=== PATIENT | male | born 1965 | race African-American/Black ===

== ENCOUNTER 2019-10-01 16:53 | Outpatient (RCR) | payer OTHER, SELFPAY ==
--- NOTE | 2019-10-01 17:44 | PTOPEVAL ---
Thank you for referring this patient to [facility]. Please review, sign, date and return this plan of care ANDRAE. I agree with and certify that the following plan of care is medically necessary. Referring Physician Date Admitting Provider: Attending Provider: Christian Santoyo MD Referring Provider: *PT Outpatient Evaluation Start: 10/01/19 17:03 Freq: Status: Active Protocol: Document 10/01/19 17:04 MEDHAT (Rec: 10/01/19 17:34 MEDHAT [id number]) Therapy Assessment Status Assessment Status Assessment Status Evaluation Evaluation Information Problem Diagnosis neck pain Onset 09/26/19 Subjective Information Pt. reports that he began Query Text:As Reported By Patient/ developing gradual neck pain Family about 1 year ago. He reports that he attempted client care representative without any relief. He reports that pain in the neck is not constant. He reports that pain comes with any neck movement and describes pain on the right side of the neck. He reports that pain is increased espeically with quick movement. He reports having numbness and tingling and burning sensation into the left hand. 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 He states that his goal is to be able to move his neck more with less pain. Diagnostic Tests X-Rays For This Problem Yes: DISH was revealed according to the pt. Prior Level of Function Activity Level (Last 3 Months) Hand Dominance Right Activity of Daily Living Ability Independent Indoor/Home Mobility Independent Community Mobility Independent Stairs Ability Independent Functional Cognition (Planning, Shopping Independent , Taking Medications) Cooking Yes Cleaning Yes Laundry Yes Shopping Yes Driving Yes Comments Additional Prior Level of Function pt. continues to work full Comments time despite continued neck pain Pain Assessment Pain Scale Pain Scale Used Numeric (1 - 10) Self Report Pain Assessme
== END 2019-10-25 18:46 | disposition home or self-care (01) ==
LOC: CHSPT 16:53
PROVIDERS: PCP Family Medicine; Visit Provider Family Medicine
DX: M54.2 Cervicalgia (principal)
CPT/HCPCS: 97014; 97110; 97140; 97161; G0283

== ENCOUNTER 2020-05-29 16:32 | Outpatient (CLI) | payer OTHER, SELFPAY ==
[2020-05-29 16:48] LABS: Basophils Absolute Auto 0.06 K/mm3 (0.00-0.10); Basophils Percent Auto 0.7 % (0.0-1.0); Eosinophils Absolute Auto 0.62 K/mm3 (0.02-0.50); Eosinophils Percent Auto 7.6 % (1.0-6.0); Hematocrit 53.3 % (40.0-54.0); Hemoglobin 17.1 g/dL (14.0-18.0); Immature Granulocyte Absolute 0.03 K/mm3 (0.00-0.00); Immature Granulocyte Percent A 0.4 % (0.0-0.0); Lymphocytes Absolute Auto 2.04 K/mm3 (1.10-4.50); Mean Corpuscular HGB Conc 32.1 g/dL (32.0-36.0); Mean Corpuscular Hemoglobin 28.5 pg (27.0-31.0); Mean Corpuscular Volume 88.7 fL (78.0-102.0); Mean Platelet Volume 9.9 fl (8.7-11.0); Monocytes Absolute Auto 0.81 K/mm3 (0.10-0.90); Monocytes Percent Auto 9.9 % (2.0-11.0); Neutrophils Absolute Auto 4.6 K/mm3 (1.7-7.2); Neutrophils Percent Auto 56.4 % (50.0-70.0); Platelet Count Result 224 K/mm3 (150-420); Red Blood Count 6.01 M/mm3 (4.70-6.10); Red Cell Distribution Width 13.3 % (11.6-14.4); White Blood Count 8.2 K/mm3 (4.8-10.8)
[2020-05-29 17:12] LABS: Hemoglobin A1C 5.6 % (<5.7)
[2020-05-29 17:21] LABS: Alanine Aminotransferase 47 U/L (16-63); Albumin Level 4.1 g/dL (3.4-5.0); Alkaline Phosphatase 90 U/L (46-116); Aspartate Amino Transferase 33 U/L (15-37); Bilirubin,Total 0.5 mg/dL (0.00-1.00); Blood Urea Nitrogen 17 mg/dL (7-18); Calcium 8.7 mg/dL (8.5-10.1); Carbon Dioxide 29 mmol/L (21-32); Estimated Glomerular Filt Rate > 60; Glucose 100 mg/dL (70-99); HDL Direct 41 mg/dL (40-60); Thyroid Stimulating Hormone 1.95 uIU/mL (0.36-3.74); Triglycerides 165 mg/dL (0-150)
[2020-05-29 17:43] LABS: Anion Gap 7 mmol/L (8-16); Chloride 105 mmol/L (98-108); LDL Cholesterol Calculated 128 mg/dL (<130); Osmolality Calculated 293 mOsm/kg (285-295); Sodium 141 mmol/L (136-145)
[2020-05-29 17:47] LABS: Cholesterol 202 mg/dL (0-200)
== END 2020-05-29 16:33 | disposition home or self-care (01) ==
LOC: CHSLAB 16:34
PROVIDERS: PCP Family Medicine; Visit Provider Family Medicine
DX: E78.5 Hyperlipidemia, unspecified (principal); I10 Essential (primary) hypertension; J45.909 Unspecified asthma, uncomplicated
CPT/HCPCS: 36415; 80053; 80061; 83036; 84443; 85025

== ENCOUNTER 2020-08-12 11:54 | Outpatient (CLI) | payer OTHER, SELFPAY ==
[2020-08-12 23:36] LABS: SARS-CoV-2 RNA PCR Negative
== END 2020-08-12 11:55 | disposition home or self-care (01) ==
LOC: CHSLAB 11:56
PROVIDERS: PCP Family Medicine; Visit Provider Family Medicine
DX: Z20.828 Contact with and (suspected) exposure to other viral communicable diseases (principal)
CPT/HCPCS: 87635; C9803; U0003

== ENCOUNTER 2021-08-31 16:26 | Outpatient (CLI) | payer OTHER, SELFPAY ==
[2021-08-31 16:44] LABS: Hemoglobin 16.9 g/dL (14.0-18.0); Mean Corpuscular HGB Conc 31.9 g/dL (32.0-36.0); Mean Corpuscular Hemoglobin 28.9 pg (27.0-31.0); Mean Corpuscular Volume 90.6 fL (78.0-102.0); Mean Platelet Volume 9.3 fl (8.7-11.0); Platelet Count Result 213 K/mm3 (150-420); Red Blood Count 5.85 M/mm3 (4.70-6.10); Red Cell Distribution Width 14.3 % (11.6-14.4); White Blood Count 6.9 K/mm3 (4.8-10.8)
[2021-08-31 17:07] LABS: Alanine Aminotransferase 56 U/L (16-63); Albumin Level 3.8 g/dL (3.4-5.0); Alkaline Phosphatase 65 U/L (46-116); Anion Gap 8 mmol/L (8-16); Aspartate Amino Transferase 28 U/L (15-37); Bilirubin,Total 0.5 mg/dL (0.00-1.00); Blood Urea Nitrogen 19 mg/dL (7-18); Carbon Dioxide 30 mmol/L (21-32); Chloride 102 mmol/L (98-108); Cholesterol 220 mg/dL (0-200); Estimated Glomerular Filt Rate > 60; Glucose 93 mg/dL (70-99); HDL Direct 39 mg/dL (40-60); LDL Cholesterol Calculated 157 mg/dL (<130); Osmolality Calculated 292 mOsm/kg (285-295); Potassium 3.7 mmol/L (3.5-5.1); Sodium 140 mmol/L (136-145); Total Protein 7.4 g/dL (6.4-8.2); Triglycerides 120 mg/dL (0-150)
== END 2021-08-31 16:27 | disposition home or self-care (01) ==
LOC: CHSLAB 16:30
PROVIDERS: PCP Family Medicine; Visit Provider Family Medicine
DX: Z00.00 Encounter for general adult medical examination without abnormal findings (principal)
CPT/HCPCS: 36415; 80053; 80061; 85027

== ENCOUNTER 2023-03-05 09:11 | Outpatient (CLI) | payer OTHER, SELFPAY ==
[2023-03-05 09:27] LABS: Basophils Absolute Auto 0.04 K/mm3 (0.00-0.10); Basophils Percent Auto 0.5 % (0.0-1.0); Eosinophils Absolute Auto 0.66 K/mm3 (0.02-0.50); Eosinophils Percent Auto 8.9 % (1.0-6.0); Hematocrit 48.8 % (40.0-54.0); Hemoglobin 15.8 g/dL (14.0-18.0); Immature Granulocyte Absolute 0.08 K/mm3 (0.00-0.00); Immature Granulocyte Percent A 1.1 % (0.0-0.0); Lymphocytes Absolute Auto 1.42 K/mm3 (1.10-4.50); Lymphocytes Percent Auto 19.2 % (18.0-42.0); Mean Corpuscular HGB Conc 32.4 g/dL (32.0-36.0); Mean Corpuscular Hemoglobin 28.2 pg (27.0-31.0); Mean Corpuscular Volume 87.1 fL (78.0-102.0); Mean Platelet Volume 9.1 fl (8.7-11.0); Monocytes Absolute Auto 0.86 K/mm3 (0.10-0.90); Monocytes Percent Auto 11.6 % (2.0-11.0); Neutrophils Absolute Auto 4.3 K/mm3 (1.7-7.2); Neutrophils Percent Auto 58.7 % (50.0-70.0); Platelet Count Result 233 K/mm3 (150-420); Red Cell Distribution Width 14.7 % (11.6-14.4); White Blood Count 7.4 K/mm3 (4.8-10.8)
[2023-03-05 10:02] LABS: Alanine Aminotransferase 52 U/L (16-63); Albumin Level 3.6 g/dL (3.4-5.0); Alkaline Phosphatase 71 U/L (46-116); Anion Gap 7 mmol/L (8-16); Aspartate Amino Transferase 30 U/L (15-37); Bilirubin,Total 0.6 mg/dL (0.00-1.00); Blood Urea Nitrogen 19 mg/dL (7-18); Calcium 8.9 mg/dL (8.5-10.1); Carbon Dioxide 32 mmol/L (21-32); Chloride 102 mmol/L (98-108); Cholesterol 192 mg/dL (0-200); Estimated Glomerular Filt Rate > 60; Glucose 105 mg/dL (70-99); HDL Direct 38 mg/dL (40-60); LDL Cholesterol Calculated 131 mg/dL (<130); Osmolality Calculated 294 mOsm/kg (285-295); Potassium 3.8 mmol/L (3.5-5.1); Sodium 141 mmol/L (136-145); Total Protein 6.6 g/dL (6.4-8.2); Triglycerides 116 mg/dL (0-150)
[2023-03-14 15:07] LABS: Hemoglobin A1C 5.7 % (<5.7)
== END 2023-03-05 09:12 | disposition home or self-care (01) ==
LOC: CHSLAB 09:15
PROVIDERS: PCP Family Medicine; Visit Provider Nurse Practitioner Family
DX: Z00.00 Encounter for general adult medical examination without abnormal findings (principal); E78.5 Hyperlipidemia, unspecified; I10 Essential (primary) hypertension; J45.909 Unspecified asthma, uncomplicated
CPT/HCPCS: 36415; 80053; 80061; 83036; 85025

== ENCOUNTER 2024-11-27 16:31 | Outpatient (CLI) | payer OTHER, SELFPAY ==
[2024-11-27 17:07] LABS: Basophils Absolute Auto 0.06 K/mm3 (0.00-0.10); Basophils Percent Auto 0.8 % (0.0-1.0); Eosinophils Absolute Auto 0.33 K/mm3 (0.02-0.50); Eosinophils Percent Auto 4.3 % (1.0-6.0); Hematocrit 50.2 % (40.0-54.0); Hemoglobin 15.7 g/dL (14.0-18.0); Immature Granulocyte Absolute 0.08 K/mm3 (0.00-0.00); Lymphocytes Absolute Auto 1.99 K/mm3 (1.10-4.50); Lymphocytes Percent Auto 25.8 % (18.0-42.0); Mean Corpuscular HGB Conc 31.3 g/dL (32-36); Mean Corpuscular Volume 89.5 fL (78.0-102.0); Mean Platelet Volume 8.9 fl (8.7-11.0); Monocytes Percent Auto 11.7 % (2.0-11.0); Neutrophils Absolute Auto 4.34 K/mm3 (1.70-7.20); Neutrophils Percent Auto 56.4 % (50.0-70.0); Platelet Count Result 331 K/mm3 (150-420); Red Blood Count 5.61 M/mm3 (4.70-6.10); Red Cell Distribution Width 14.9 % (11.6-14.4); White Blood Count 7.7 K/mm3 (4.8-10.8)
[2024-11-27 17:23] LABS: Hemoglobin A1C 5.8 % (<5.7)
[2024-11-27 17:43] LABS: Alanine Aminotransferase 54 U/L (16-63); Albumin Level 4.1 g/dL (3.4-5.0); Alkaline Phosphatase 82 U/L (46-116); Anion Gap 8 mmol/L (4-12); Aspartate Amino Transferase 28 U/L (15-37); Bilirubin,Total 0.6 mg/dL (0.00-1.00); Blood Urea Nitrogen 17 mg/dL (7-18); Calcium 9.3 mg/dL (8.5-10.1); Carbon Dioxide 34 mmol/L (21-32); Chloride 103 mmol/L (98-108); Cholesterol 104 mg/dL (0-200); Estimated Glomerular Filt Rate 60; Glucose 92 mg/dL (70-99); HDL Direct 42 mg/dL (40-60); LDL Cholesterol Calculated 47 mg/dL (<130); Osmolality Calculated 301 mOsm/kg (285-295); Potassium 4.3 mmol/L (3.5-5.1); Sodium 145 mmol/L (136-145); Triglycerides 73 mg/dL (0-150)
[2024-11-27 17:54] LABS: Thyroid Stimulating Hormone Reflex 1.88 u/IU/mL (0.36-3.74)
[2024-11-29 14:39] LABS: H pylori, Urea Breath NOT DETECTED (NOT DETECTED)
== END 2024-11-27 16:32 | disposition home or self-care (01) ==
LOC: CHSLAB 16:33
PROVIDERS: PCP Family Medicine; Visit Provider Nurse Practitioner Family
DX: Z00.00 Encounter for general adult medical examination without abnormal findings (principal); R10.11 Right upper quadrant pain
CPT/HCPCS: 36415; 80053; 80061; 83013; 83036; 84443; 85025

== ENCOUNTER 2024-11-30 07:14 | Outpatient (CLI) | payer OTHER, SELFPAY ==
--- NOTE | ~2024-11-30 | US_ITS ---
Abdominal Sonogram: Real-time sonographic imaging of the abdomen was performed. Clinical History: Right upper quadrant pain Findings: The liver appears mildly echogenic, with no evidence of mass lesion or bile duct dilatatio n. Main portal vein demonstrates normal direction of flow. The spleen is normal in size without evide nce of focal lesion. The gallbladder is well distended, and appears normal with no evidence of galls tone or wall thickening. The common bile duct measures 3 mm. The visualized pancreas, aorta, and IVC are unremarkable. The right kidney measures 10.8 cm in length and the left kidney measures 11.8 cm. There is no hydronephrosis or renal calculus. Impression: Probable diffuse fatty infiltration of the liver. Reviewed, dictated and finalized at location . Impression: Probable diffuse fatty infiltration of the liver.
--- OUTSIDE RECORDS SUMMARY | 2024-11-30 07:19 | XMS_ITS | Clinical Summary ---
Author Organization [facility] Address [address] [place] [address] Care Team Providers Care Biomedical Equipment Tech Name Role Phone Kaushal Eddy MD Primary Care Provider [phone] Source Comments [facility],non-owned Affiliates and Associated Physician Practices is amultiple site organization consisting of ambulatory clinics and hospital sitesin [place], [place], [place] and [place]. This disclosure is being madepursuant to the Care Everywhere program and may not contain all information available regarding this patient. Last updated 18.[facility] Allergies Active Allergy Reactions Criticality Noted Date Comments Penicillins 09/10/2016 Medications * Be aware that medications may not be up to date on this document. Alwaysverify current medications with the patient. Medication Sig Dispensed Refills Start Date End Date Status Fluticasone-Salmeterol (ADVAIR HFA IN) Active Albuterol Sulfate (PROAIR HFA IN) Active Loratadine (CLARITIN PO) Active Fluticasone Propionate (FLONASE NA) Active Social History Tobacco Use Types Packs/Day Years Used Date Smoking Tobacco: Former Sex and Gender Information Value Date Recorded Sex Assigned at Not on file Gender Identity Not on file Sexual Orientation Not on file Last Filed Vital Signs Vital Sign Reading Time Taken Comments Blood Pressure 154/100 09/10/2016 2:50 PM [employer] Pulse 105 09/10/2016 2:50 PM [employer] Temperature 38.7 C (101.6 F) 09/10/2016 2:50 PM [employer] Respiratory Rate 16 09/10/2016 2:50 PM [employer] Oxygen Saturation 92% 09/10/2016 2:50 PM [employer] Inhaled Oxygen Concentration - - Weight 95.3 kg (210 lb) 09/10/2016 2:50 PM [employer] Height 180.3 cm (5' 11 ) 09/10/2016 2:50 PM [employer] Body Mass Index 29.29 09/10/2016 2:50 PM [employer] Plan of Treatment Health Maintenance Due Date Last Done Comments COLOGUARD (AGES 45-75) - COL ON CA SCREENING 1967 COLON MONITORING 1967 COLONOSCOPY - COLON CA SCREENING 1967 CT COLONOGRAPHY - COLON CA SCREENING 1967 Colorectal Cancer Screening 1967 FIT - COLON CA SCREENING 1967 FLEX SIG - COLON CA SCREENING 1967 LIPID TESTING 1967 HIV SCREENING 1982 HEPATITIS C SCREENING 04/28/1985 DTAP/TDAP/TD VACCINES (1 - Tdap) 1986 HEPATITIS B VACCINE (1 of 3 - 19+ 3-dose series) 1986 PNEUMOCOCCAL VACCINE 50+ (1 of 1 - PCV) 2017 ZOSTER VACCINE (1 of 2) 2017 COVID-19 VACCINE ( - 2023-2 5 season) 2024 INFLUENZA VACCINE (#1) 2024 DEPRESSION SCREENING 09/12/2024 HIB VACCINE Aged Out No longer eligi ble based on patient's age to complete this topic HPV VACCINE Aged Out No longer eligi ble based on patient's age to complete this topic MENINGOCOCCAL (Group B) VACC INE SHARED DECISION-MAKING Aged Out No longer eligibl e based on patient's age to complete this topic MENINGOCOCCAL GROUPS A/C/Y/W VACCINE Aged Out No longer eligible b ased on patient's age to complete this topic PNEUMOCOCCAL VACCINE Aged Out No long er eligible based on patient's age to complete this topic Care Teams Biomedical Equipment Tech Relationship Specialty Start Date End Date Kaushal Eddy MD [address] [place] [address] [facility] - General Surgery 09/10/16
--- OUTSIDE RECORDS SUMMARY | 2024-11-30 07:20 | XMS_ITS | Continuity of Care Document ---
Author Organization [facility] Address [address] [place] [address] [address] [place] [address] Phone Care Team Providers Care Suction Dredge Dumping Supervisor Name Role Phone Chidi GIRON, OTR/L, Rachael MCCLAIN Unavailable Unavailable Procedures Procedure Date OT EVALUATION THERAPEUTIC EXERCISES FUNC ACTIVITY HOT/COLD PACK OT RE-EVALUATION THERAPEUTIC EXERCISES MANUAL THERAPY FUNC ACTIVITY HOT/COLD PACK THERAPEUTIC EXERCISES MANUAL THERAPY FUNC ACTIVITY HOT/COLD PACK OT RE-EVALUATION THERAPEUTIC EXERCISES MANUAL THERAPY FUNC ACTIVITY HOT/COLD PACK THERAPEUTIC EXERCISES MANUAL THERAPY FUNC ACTIVITY HOT/COLD PACK ELECTRIC STIMULATION UNATT THERAPEUTIC EXERCISES MANUAL THERAPY FUNC ACTIVITY HOT/COLD PACK ELECTRIC STIMULATION UNATT OT EVALUATION THERAPEUTIC EXERCISES Advance Directives Directive Yes / No Effective Date File Name No Information Encounters Encounter Description Practice Location Reason(s) For Visit Diagnoses Date Provider Providers Copied on Encounter [facility], [address] [place], [place] [address], [place], [place], [id number], [place] tel:[phone] [place] Pain in left elbowEffusion, left elbowStiffness of left elbow, not elsewhere classifiedContr acture, left elbow Jul- 0-201 5 Hauschild Rachael. [address] [facility], [address], [place], [place], [facility], . tel:[phone] Referring Provider: Clayton Burr, [address] [place] [address] [address], [place], [address]. tel:[phone], [id number], tel:[phone] [place] No Information 6-201 5 Hauschild Rachael. [address] [place] [address], [address], [place], [place], [facility], [place]. tel:[phone] Referring Provider: Clayton Burr, [address] [place] [address] [address], [place], [address]. tel:[phone], [id number], [place] tel:[phone] [place] Pain in right elbowMuscle weakness (generalized)St iffness of right elbow, not elsewhere classifiedStiff ness of right wrist, not elsewhere classifiedOther specified disorders of muscleLoose body in right elbow 8 5 Hauschild Rachael. [address] [place] [address], [address], [place], [place], [facility], [place]. tel:[phone] Referring Provider: Clayton Burr, [address] [place] [address] [address], [place], [address]. tel:[phone], [id number], [place] tel:[phone] [place] No Information 9 5 Hauschild Rachael. [address] [place] [address], [address], [place], [place], [facility], [place]. tel:[phone] Referring Provider: Clayton Burr, [address] [place] [address] [address], [place], [address]. tel:[phone], [place], [place], [id number], tel:[phone] [place] No Information May- 5 Chidi Cano. [address] [facility], [address], [facility], [place]. tel:[phone] Referring Provider: Clayton Burr, [address] [place] [address] [address], [place], [address]. tel:[phone] [facility] [address], [id number], tel:[phone] [place] No Information May- 5 Chidi Rachael. [address] [facility], [facility] [address], [place], [facility], [place]. tel:[phone] Referring Provider: Clayton Burr, [address] [place] [address], [place], [address]. tel:[phone] [facility] [address], [id number], tel:[phone] [place] Pain in joint involving forearm Sep- 5 Chidi Cano. [address] [facility], [address], [place], [facility], [place]. tel:[phone] Referring Provider: Clayton Burr, [address] [place] [address] [address] [facility], [place], [address]. tel:[phone] Family History Family Member Type Diagnosis Age At Onset No Information Payers Payer name Insurance type Covered constitution party ID Kiana tiera(s) [facility] CI [id number] Social History Type Description Quantity Date Captured Comments Sex Male Smoking Status No Information Chief Complaint And Reason For Visit No Information Reason For Referral Reason For Referral No Information History Of Present Illness Encounter Date Complaint History Of Prese nt Illness No Information Functional Status Date Functional Assessmen t No Information Instructions Date Instruction Additional Infor mation No Information Assessments Type Assessment Date No Information Patient Care Teams Name Effective Dates (start - stop) Status Members No Information
== END 2024-11-30 07:15 | disposition home or self-care (01) ==
LOC: CHSIMG 07:15
PROVIDERS: PCP Family Medicine; Visit Provider Nurse Practitioner Family
DX: R10.11 Right upper quadrant pain (principal)
CPT/HCPCS: 76700